=== PATIENT | female | born 1980 | race Caucasian/White ===

== ENCOUNTER 2021-02-12 06:00 | Day surgery (SDC) | payer BC, SELFPAY ==
[~2021-02-12] VITALS: Ht 167.6 cm; Wt 117.9 kg
[2021-02-12] MEDS ORDERED: PROPOFOL 200MG/ 20ML VIAL (DIPRIVAN) IV ONE (06:01)
[2021-02-12] MEDS ORDERED: MIDAZOLAM HCL 5 MG/5 ML VIAL IVP ONE (06:01)
[2021-02-12] MEDS ORDERED: CEFAZOLIN 2 GM IVPB PREMIX 50 ML IV ONE (06:01)
[2021-02-12] MEDS ORDERED: SEVOFLURANE 15 MIN GAS INH ONE (06:01)
[2021-02-12] MEDS ORDERED: NS IRRIG SOLN 1000 ML IR ONE (06:01)
[2021-02-12] MEDS ORDERED: ONDANSETRON HCL 4 MG/2 ML VIAL IVP ONE ×2 (06:01→09:45)
[2021-02-12] MEDS ORDERED: LIDOCAINE JECT 2% PF 100 MG/5ML SYRINGE IVP ONE (06:01)
[2021-02-12] MEDS ORDERED: LR 1,000 ML IV.SOLN IV ONE (06:01)
[2021-02-12] MEDS ORDERED: METOCLOPRAMIDE HCL 10 MG/2 ML VIAL IVP ONE (06:01)
[2021-02-12] MEDS ORDERED: DEXAMETHASONE SOD PHOSPHATE 4 MG/ML VIAL IVP ONE (06:01)
[2021-02-12] MEDS ORDERED: NS 1000 ML IV.SOLN IV ONE (06:01)
[2021-02-12] MEDS ORDERED: fentaNYL CITRATE 250 MCG/5 ML AMP IV ONE (06:01)
[2021-02-12] MEDS ORDERED: KETOROLAC TROMETHAMINE 30 MG VIAL IVP ONE (06:01)
[2021-02-12 06:34] LABS: HCG,QUAL RESULT NEGATIVE (NEGATIVE)
[2021-02-12] MEDS ORDERED: ONDANSETRON HCL 4 MG/2 ML VIAL IM PRN (09:00)
[2021-02-12] MEDS ORDERED: OXYCODONE/ACETAMINOPHEN 5-325 TABLET PO PRN ×2 (09:00)
[2021-02-12] MEDS ORDERED: IBUPROFEN 800 MG TABLET PO PRN (09:00)
[2021-02-12] MEDS ORDERED: ONDANSETRON HCL 4 MG/2 ML VIAL ONE (09:03)
[2021-02-12 14:20] VITALS: BP_SYST 111
== END 2021-02-12 11:40 | disposition home or self-care (01) ==
LOC: SMU 06:00 → SDS 06:00
PROVIDERS: ATTEND Obstetrics & Gynecology
DX: N93.9 Abnormal uterine and vaginal bleeding, unspecified (principal); N84.0 Polyp of corpus uteri; F41.9 Anxiety disorder, unspecified; J45.909 Unspecified asthma, uncomplicated; F32.9 Major depressive disorder, single episode, unspecified; M54.16 Radiculopathy, lumbar region; E66.01 Morbid (severe) obesity due to excess calories; Z68.41 Body mass index [BMI] 40.0-44.9, adult; Z20.822 Contact with and (suspected) exposure to COVID-19; Z79.899 Other long term (current) drug therapy
CPT/HCPCS: 58563; 84703; 88305; C1819; J0690; J1100; J1885; J2250; J2405; J2704; J2765; J3010; J7030; J7120; U0003